=== PATIENT | female | born 1945 | race Caucasian/White ===

== ENCOUNTER 2017-07-28 11:20 | Inpatient (IN) | payer OTHER ==
[~2017-07-28] VITALS: Ht 160 cm; Wt 114.0 kg
[2017-07-28 13:41] LABS: HEMOGLOBIN 14.4 G/DL (11.9-15.5); MCH 28.8 PG (29.0-34.0); MCHC 32.7 G/DL (30.0-36.0); PLATELET COUNT 197 K/uL (156-360); RBC DIS.WIDTH-CV 14.6 % (11.8-14.6); WHITE BLOOD COUNT 9.8 K/uL (4.1-10.2)
[2017-07-28 13:47] LABS: CHLORIDE 91 mEq/L (99-109); POTASSIUM 4.4 mEq/L (3.7-5.4); SODIUM 133 mEq/L (136-147)
[2017-07-28 13:53] LABS: CREATININE 1.6 mg/dL (0.6-1.3); GFR ESTIMATE (CALCULATED) 33 mL/min/
[2017-07-28 13:54] LABS: GLUCOSE 650 mg/dL (70-99); UREA NITROGEN (BUN) 22 mg/dL (9-23)
[2017-07-28 16:12] LABS: TROP-I INTERPRETATION INDETERMINATE; TROPONIN-I 0.36 ng/mL (0.0-0.30)
[2017-07-28] MEDS ORDERED: FLEXERIL5 MG PO (20:04)
[2017-07-28] MEDS ORDERED: CARTIA XT180 MG PO (20:05)
[2017-07-28] MEDS ORDERED: LIPITOR80 MG PO (20:05)
[2017-07-28] MEDS ORDERED: FUROSEMIDE20 MG PO (20:05)
[2017-07-28] MEDS ORDERED: FENOFIBRATE54 M1 PO (20:06)
[2017-07-28] MEDS ORDERED: HUMALOG100 UNIT/1 SC (20:07)
[2017-07-28] MEDS ORDERED: ADULT ASPIRIN R81 MG PO (20:07)
[2017-07-28] MEDS ORDERED: VITAMIN D31000 UNIT PO (20:07)
[2017-07-28] MEDS ORDERED: APPLE CIDER VI500 MG PO (20:07)
[2017-07-28] MEDS ORDERED: TUDORZA PRESS400 MCG IH (20:07)
[2017-07-28] MEDS ORDERED: LOPRESSOR50 MG PO (20:07)
[2017-07-28] MEDS ORDERED: ADVAIR 500/501 DISK IH (20:07)
[2017-07-28] MEDS ORDERED: VENTOLIN HFA18 GM IH (20:08)
[2017-07-28 20:29] LABS: INTER. NORMALIZED RATIO 1.1
[2017-07-28 20:30] LABS: ALBUMIN 3.8 g/dL (3.2-4.8); CHLORIDE 96 mEq/L (99-109); POTASSIUM 4.3 mEq/L (3.7-5.4); SODIUM 135 mEq/L (136-147)
[2017-07-28 20:32] LABS: PTT 32.7 SEC (25-37)
[2017-07-28 20:34] LABS: TOTAL BILIRUBIN 0.7 mg/dL (0.0-1.0)
[2017-07-28 20:36] LABS: ALKALINE PHOSPHATASE 92 IU/L (3-129); CREATININE 1.5 mg/dL (0.6-1.3); GFR ESTIMATE (CALCULATED) 36 mL/min/
[2017-07-28 20:37] LABS: UREA NITROGEN (BUN) 21 mg/dL (9-23)
[2017-07-28 20:38] LABS: AST (GOT) 23 IU/L (2-34)
[2017-07-28 20:39] LABS: ALT (GPT) 18 IU/L (3-49)
[2017-07-28 20:53] LABS: GLUCOSE 450 mg/dL (70-99)
[2017-07-28 20:57] LABS: HEMATOCRIT 43.4 % (36.0-46.0); HEMOGLOBIN 14.3 G/DL (11.9-15.5); MCH 28.7 PG (29.0-34.0); MCHC 32.9 G/DL (30.0-36.0); MCV 87.1 FL (83-99); PLATELET COUNT 200 K/uL (156-360); RBC DIS.WIDTH-CV 14.5 % (11.8-14.6); RBC DIS.WIDTH-SD 45.1 % (39-53); RED BLOOD COUNT 4.98 M/uL (3.80-5.20); WHITE BLOOD COUNT 9.1 K/uL (4.1-10.2)
[2017-07-29 01:01] LABS: TROP-I INTERPRETATION INDETERMINATE; TROPONIN-I 0.32 ng/mL (0.0-0.30)
[2017-07-29 02:59] VITALS: BP 137/91
[2017-07-29 05:52] LABS: HEMATOCRIT 42.8 % (36.0-46.0); HEMOGLOBIN 13.9 G/DL (11.9-15.5); MCHC 32.5 G/DL (30.0-36.0); MCV 89.2 FL (83-99); PLATELET COUNT 196 K/uL (156-360); RBC DIS.WIDTH-CV 14.6 % (11.8-14.6); RBC DIS.WIDTH-SD 46.4 % (39-53)
[2017-07-29 06:09] LABS: TROP-I INTERPRETATION NEGATIVE; TROPONIN-I 0.22 ng/mL (0.0-0.30)
[2017-07-29 06:34] LABS: CHLORIDE 95 MEQ/L (99-109); CREATININE 1.3 MG/DL (0.6-1.3); GFR ESTIMATE (CALCULATED) 43 mL/min/; SODIUM 136 MEQ/L (136-147); UREA NITROGEN (BUN) 22 mg/dL (9-23)
[2017-07-29 06:40] LABS: GLUCOSE 462 mg/dL (70-99)
[2017-07-29 08:04] VITALS: BP 149/87
[2017-07-29 11:17] VITALS: BP 154/82
[2017-07-29 16:25] VITALS: BP 122/73
[2017-07-29 18:30] LABS: GLUCOSE 603 mg/dL (70-99)
[2017-07-29 19:25] VITALS: BP 146/78
[2017-07-30] VITALS: BP 130/80
[2017-07-30 01:09] LABS: CHLORIDE 101 mEq/L (99-109); POTASSIUM 5.1 mEq/L (3.7-5.4); SODIUM 133 mEq/L (136-147)
[2017-07-30 01:14] LABS: CREATININE 1.6 mg/dL (0.6-1.3); GFR ESTIMATE (CALCULATED) 33 mL/min/
[2017-07-30 01:15] LABS: UREA NITROGEN (BUN) 28 mg/dL (9-23)
[2017-07-30 01:18] LABS: GLUCOSE 517 mg/dL (70-99)
[2017-07-30 04:30] VITALS: BP 132/78
[2017-07-30 06:07] LABS: BASOPHIL (%) 0.1 % (0-1); EOSINOPHIL (%) 0 % (0-5); IMMATURE GRANULOCYTE (%) 0.9 % (0.0-0.7); LYMPHOCYTE (%) 5.9 % (15-42); LYMPHOCYTE COUNT 1.2 K/uL (1.0-2.8); MCH 29.3 PG (29.0-34.0); MCHC 33.3 G/DL (30.0-36.0); MONOCYTE (%) 5.7 % (3-12); MONOCYTE COUNT 1.2 K/uL (0-0.8); NEUTROPHIL (%) 87.4 % (45-76); NEUTROPHIL COUNT 18.4 K/uL (1.8-6.4); PLATELET COUNT 205 K/uL (156-360); RBC DIS.WIDTH-CV 14.3 % (11.8-14.6); RBC DIS.WIDTH-SD 45.3 % (39-53); RED BLOOD COUNT 4.43 M/uL (3.80-5.20); WHITE BLOOD COUNT 21.1 K/uL (4.1-10.2)
[2017-07-30 06:31] LABS: CHLORIDE 101 MEQ/L (99-109); CREATININE 1.2 MG/DL (0.6-1.3); GFR ESTIMATE (CALCULATED) 47 mL/min/; GLUCOSE 397 mg/dL (70-99); POTASSIUM 4.6 MEQ/L (3.7-5.4); SODIUM 136 MEQ/L (136-147); UREA NITROGEN (BUN) 27 mg/dL (9-23)
[2017-07-30 08:43] VITALS: BP 129/74
[2017-07-30 12:03] VITALS: BP 174/85
[2017-07-30 17:00] VITALS: BP 185/87
[2017-07-30 19:45] VITALS: BP 190/80
[2017-07-31 00:15] VITALS: BP 146/78
[2017-07-31 04:50] VITALS: BP 148/76
[2017-07-31 07:20] VITALS: BP 177/78
[2017-07-31 11:15] VITALS: BP 115/64
[2017-07-31 15:02] VITALS: BP 157/80
[2017-07-31 19:15] VITALS: BP 145/74
[2017-08-01] VITALS: BP 160/90
[2017-08-01 04:45] VITALS: BP 152/88
[2017-08-01 08:15] VITALS: BP 153/90
[2017-08-01 11:27] LABS: BASOPHIL (%) 0.2 % (0-1); EOSINOPHIL (%) 0.4 % (0-5); HEMATOCRIT 40.4 % (36.0-46.0); HEMOGLOBIN 13.1 G/DL (11.9-15.5); IMMATURE GRANULOCYTE (%) 1.2 % (0.0-0.7); LYMPHOCYTE (%) 15.1 % (15-42); LYMPHOCYTE COUNT 1.6 K/uL (1.0-2.8); MCHC 32.4 G/DL (30.0-36.0); MCV 89.4 FL (83-99); MONOCYTE (%) 8.9 % (3-12); NEUTROPHIL (%) 74.2 % (45-76); NRBC (%) 0.2 /100 WBC (0-0); RBC DIS.WIDTH-CV 14.9 % (11.8-14.6); RBC DIS.WIDTH-SD 47.7 % (39-53); RED BLOOD COUNT 4.52 M/uL (3.80-5.20); WHITE BLOOD COUNT 10.7 K/uL (4.1-10.2)
[2017-08-01 11:45] VITALS: BP 192/81
[2017-08-01 11:59] LABS: ANISOCYTOSIS 1+; OVALOCYTES 1+; PLAT.SUFFICIENCY ADEQUATE; PLATELET COUNT 209 K/uL (156-360); POLYCHROMASIA 1+; TARGET CELLS 1+
[2017-08-01] MEDS ORDERED: NOVOLOG 10100 UNITS/ SC (15:38)
[2017-08-01] MEDS ORDERED: LEVEMIR100 UNIT/2 SC (15:38)
[2017-08-01] MEDS ORDERED: CEFTIN500 MG PO (15:41)
[2017-08-01] MEDS ORDERED: ALBUTEROL2.5 MG/3 M IH (15:42)
[2017-08-01] MEDS ORDERED: PREDNISONE5 MG PO (15:43)
[2017-08-01] MEDS ORDERED: LISINOPRIL5 MG PO (16:02)
[2017-08-01 16:18] VITALS: BP 172/80
[2017-08-01 22:26] VITALS: BP 200/87
[2017-08-02 00:24] VITALS: BP 190/94
[2017-08-02 04:53] VITALS: BP 186/84
[2017-08-02 08:11] VITALS: BP 121/60
[2017-08-02 11:41] VITALS: BP 165/78
== END 2017-08-02 16:21 | disposition home health service (06) | DRG 189 ==
LOC: EME 11:20 → 4EAST 18:53 → EDOF 18:53 → ENRESERV 19:04 → 4EAST 07-29 02:45
PROVIDERS: Emergency Medicine; Hospitalist; Internal Medicine; Internal Medicine Pulmonary Disease
PROC: 5A09357 Assistance with Respiratory Ventilation, Less than 24 Consecutive Hours, Continuous Positive Airway Pressure (ICD-10-PCS; principal; 2017-07-30)
DX: J96.21 Acute and chronic respiratory failure with hypoxia (principal); J44.0 Chronic obstructive pulmonary disease with (acute) lower respiratory infection; J20.9 Acute bronchitis, unspecified; J44.1 Chronic obstructive pulmonary disease with (acute) exacerbation; N17.9 Acute kidney failure, unspecified; E11.65 Type 2 diabetes mellitus with hyperglycemia; E66.01 Morbid (severe) obesity due to excess calories; E78.5 Hyperlipidemia, unspecified; H90.5 Unspecified sensorineural hearing loss; I25.10 Atherosclerotic heart disease of native coronary artery without angina pectoris; E86.0 Dehydration; I44.4 Left anterior fascicular block; I24.8 Other forms of acute ischemic heart disease; Z68.41 Body mass index [BMI] 40.0-44.9, adult; K21.9 Gastro-esophageal reflux disease without esophagitis; G47.33 Obstructive sleep apnea (adult) (pediatric); I10 Essential (primary) hypertension; Z99.81 Dependence on supplemental oxygen; J45.901 Unspecified asthma with (acute) exacerbation; I27.20 Pulmonary hypertension, unspecified
CPT/HCPCS: 36600; 71046; 71250; 80048; 80048 91; 80053; 82803; 82948; 83036; 84484; 84999; 85025; 85027; 85610; 85730; 87040; 87502; 93005; 93306; 94640; 94640 76; 94660; 94760; 94799; 99202; 99281; 99285; J0360; J0696; J1650; J1815; J2930; J7030; J7512

== ENCOUNTER 2017-09-13 14:01 | Inpatient (IN) | payer OTHER ==
[~2017-09-13] VITALS: Ht 154.9 cm; Wt 113.9 kg
[~2017-09-13 14:01] MED LIST: ADULT ASPIRIN R81 MG PO; ADVAIR 500/501 DISK IH; ALBUTEROL2.5 MG/3 M IH; APPLE CIDER VI500 MG PO; CARTIA XT180 MG PO; CEFTIN500 MG PO; FENOFIBRATE54 M1 PO; FLEXERIL5 MG PO; FUROSEMIDE20 MG PO; HUMALOG100 UNIT/1 SC; LEVEMIR100 UNIT/2 SC; LIPITOR80 MG PO; LISINOPRIL5 MG PO; LOPRESSOR50 MG PO; NOVOLOG 10100 UNITS/ SC; PREDNISONE5 MG PO; TUDORZA PRESS400 MCG IH; VENTOLIN HFA18 GM IH; VITAMIN D31000 UNIT PO
[2017-09-13 14:38] LABS: BASOPHIL (%) 0.5 % (0-1); BASOPHIL COUNT 0.1 K/uL (0-0.1); EOSINOPHIL (%) 0.8 % (0-5); EOSINOPHIL COUNT 0.1 K/uL (0-0.3); HEMATOCRIT 43.4 % (36.0-46.0); HEMOGLOBIN 14.2 G/DL (11.9-15.5); IMMATURE GRANULOCYTE (%) 0.9 % (0.0-0.7); LYMPHOCYTE (%) 16.7 % (15-42); LYMPHOCYTE COUNT 1.8 K/uL (1.0-2.8); MCH 28.6 PG (29.0-34.0); MCHC 32.7 G/DL (30.0-36.0); MCV 87.5 FL (83-99); MONOCYTE COUNT 1.1 K/uL (0-0.8); NEUTROPHIL (%) 71.1 % (45-76); NEUTROPHIL COUNT 7.8 K/uL (1.8-6.4); PLATELET COUNT 220 K/uL (156-360); RBC DIS.WIDTH-CV 14.8 % (11.8-14.6); RBC DIS.WIDTH-SD 47.3 % (39-53); RED BLOOD COUNT 4.96 M/uL (3.80-5.20)
[2017-09-13 14:49] LABS: ALBUMIN 3.5 g/dL (3.2-4.8); CHLORIDE 100 mEq/L (99-109); POTASSIUM 3.7 mEq/L (3.7-5.4); SODIUM 139 mEq/L (136-147)
[2017-09-13 14:51] LABS: GLUCOSE 209 mg/dL (70-99)
[2017-09-13 14:52] LABS: TOTAL PROTEIN 6.9 g/dL (6.4-8.3)
[2017-09-13 14:53] LABS: TOTAL BILIRUBIN 0.6 mg/dL (0.0-1.0)
[2017-09-13 14:55] LABS: ALKALINE PHOSPHATASE 70 IU/L (3-129); CREATININE 1.5 mg/dL (0.6-1.3); GFR ESTIMATE (CALCULATED) 36 mL/min/
[2017-09-13 14:56] LABS: UREA NITROGEN (BUN) 32 mg/dL (9-23)
[2017-09-13 14:57] LABS: AST (GOT) 24 IU/L (2-34)
[2017-09-13 14:58] LABS: ALT (GPT) 15 IU/L (3-49)
[2017-09-13 14:59] LABS: TROP-I INTERPRETATION INDETERMINATE; TROPONIN-I 0.45 ng/mL (0.0-0.30)
[2017-09-13 16:56] LABS: BASE EXCESS 3.1 mEq/L (-3 to +3); CARBOXY HGB 1.8 % (0-5); METHEMOGLOBIN 0.9 % (0-1.5); PO2 71 mm Hg (80-100); pH 7.46 (7.35-7.45)
[2017-09-13 16:57] LABS: COMMENTS - BLOOD GASES A+C+; DEVICE VENT; FI02 100 %; MODE SPONT; PCO2 38 mm Hg (35-45); PEEP 12 CM/H20; PRES. SUPPORT 12 CM/H2O; SITE LR; TOTAL RESP RATE 22 resp/min
[2017-09-13] MEDS ORDERED: LEVEMIR FL100 UNIT/1 SC (17:25)
[2017-09-13] MEDS ORDERED: FLUCONAZOLE100 MG PO (17:30)
[2017-09-13] MEDS ORDERED: CYCLOBENZAPRINE5 MG PO (17:32)
[2017-09-13] MEDS ORDERED: NOVOLOG PE100 UNITS/ SC (17:33)
[2017-09-13 18:00] VITALS: BP 164/90
[2017-09-13 19:00] VITALS: BP 143/95
[2017-09-13 20:00] VITALS: BP 148/102
[2017-09-13 20:28] LABS: BASE EXCESS 0.3 mEq/L (-3 to +3); BICARBONATE 24.6 mEq/L (22-26); CARBOXY HGB 1.7 % (0-5); COMMENTS - BLOOD GASES C+A+; DEVICE NIV; FI02 100 %; METHEMOGLOBIN 1.5 % (0-1.5); MODE SPONT; PCO2 38 mm Hg (35-45); PEEP 12 CM/H20; PO2 125 mm Hg (80-100); PRES. SUPPORT 12 CM/H2O; SITE RR; TOTAL RESP RATE 26 resp/min; pH 7.42 (7.35-7.45)
[2017-09-13 21:00] VITALS: BP 142/97
[2017-09-13 22:00] VITALS: BP 155/96
[2017-09-13 23:00] VITALS: BP 155/90
[2017-09-13 23:39] LABS: APPEARANCE SL.HAZY ((CLEAR)); BILIRUBIN NEGATIVE; BLOOD NEGATIVE; COLOR YELLOW ((YELLOW)); GLUCOSE (STRIP) NEGATIVE; KETONES NEGATIVE; LEUKOCYTES NEGATIVE; NITRITE NEGATIVE; PROTEIN (STRIP) NEGATIVE; UROBILINOGEN 0.2 MG/DL (0.2-1.0)
[2017-09-13 23:46] LABS: BACTERIA RARE /HPF; EPITHELIAL CELLS NONE SEEN /HPF; MUCUS TRACE /LPF; RED BLOOD CELLS 0-5 /HPF (0-5); WHITE BLOOD CELLS 0-5 /HPF (0-5)
[2017-09-13 23:49] LABS: TROP-I INTERPRETATION NEGATIVE
[2017-09-14] VITALS (22 sets, daily range): BP systolic 92–152; BP diastolic 65–120
[2017-09-14 04:59] LABS: BASE EXCESS 0.1 mEq/L (-3 to +3); BICARBONATE 24.7 mEq/L (22-26); CARBOXY HGB 1.8 % (0-5); COMMENTS - BLOOD GASES C+A+; DEVICE NIV; FI02 55 %; METHEMOGLOBIN 1.4 % (0-1.5); MODE SPONT; PCO2 39 mm Hg (35-45); PO2 77 mm Hg (80-100); SITE RR; TOTAL RESP RATE 18 resp/min; pH 7.41 (7.35-7.45)
[2017-09-14 05:00] LABS: PEEP 12 CM/H20; PRES. SUPPORT 12 CM/H2O
[2017-09-14 06:09] LABS: HEMATOCRIT 41.8 % (36.0-46.0); HEMOGLOBIN 13.4 G/DL (11.9-15.5); MCH 28.1 PG (29.0-34.0); MCHC 32.1 G/DL (30.0-36.0); MCV 87.6 FL (83-99); PLATELET COUNT 206 K/uL (156-360); RBC DIS.WIDTH-CV 14.6 % (11.8-14.6); RBC DIS.WIDTH-SD 47.2 % (39-53); RED BLOOD COUNT 4.77 M/uL (3.80-5.20); WHITE BLOOD COUNT 9.8 K/uL (4.1-10.2)
[2017-09-14 06:57] LABS: CHLORIDE 99 MEQ/L (99-109); POTASSIUM 4.4 MEQ/L (3.7-5.4); SODIUM 138 MEQ/L (136-147)
[2017-09-14 09:05] LABS: CREATININE 1.4 MG/DL (0.6-1.3); GFR ESTIMATE (CALCULATED) 39 mL/min/; GLUCOSE 265 mg/dL (70-99); UREA NITROGEN (BUN) 39 mg/dL (9-23)
[2017-09-14 09:46] LABS: HEMOGLOBIN A1c (GLYCOHEMOGLOB) 11.1 % (Below 5.7)
[2017-09-15] VITALS (22 sets, daily range): BP systolic 109–171; BP diastolic 59–88
[2017-09-15 05:01] LABS: BASOPHIL (%) 0.1 % (0-1); EOSINOPHIL (%) 0 % (0-5); HEMATOCRIT 37.6 % (36.0-46.0); HEMOGLOBIN 12.6 G/DL (11.9-15.5); IMMATURE GRANULOCYTE (%) 0.9 % (0.0-0.7); LYMPHOCYTE (%) 5.1 % (15-42); MCHC 33.5 G/DL (30.0-36.0); MCV 86.6 FL (83-99); MONOCYTE (%) 4.9 % (3-12); NEUTROPHIL COUNT 18.3 K/uL (1.8-6.4); PLATELET COUNT 226 K/uL (156-360); RBC DIS.WIDTH-CV 14.6 % (11.8-14.6); RBC DIS.WIDTH-SD 46.1 % (39-53); RED BLOOD COUNT 4.34 M/uL (3.80-5.20); WHITE BLOOD COUNT 20.5 K/uL (4.1-10.2)
[2017-09-15 05:13] LABS: CHLORIDE 100 mEq/L (99-109); POTASSIUM 3.9 mEq/L (3.7-5.4); SODIUM 135 mEq/L (136-147)
[2017-09-15 05:15] LABS: GLUCOSE 310 mg/dL (70-99)
[2017-09-15 05:19] LABS: CREATININE 1.8 mg/dL (0.6-1.3); GFR ESTIMATE (CALCULATED) 29 mL/min/
[2017-09-15 05:20] LABS: UREA NITROGEN (BUN) 52 mg/dL (9-23)
[2017-09-15 10:34] LABS: BASE EXCESS 1.7 mEq/L (-3 to +3); BICARBONATE 26.6 mEq/L (22-26); CARBOXY HGB 0.9 % (0-5); METHEMOGLOBIN 0 % (0-1.5); PCO2 42 mm Hg (35-45); PO2 75 mm Hg (80-100); pH 7.41 (7.35-7.45)
[2017-09-15 10:35] LABS: COMMENTS - BLOOD GASES NAC+; DEVICE HHFNC; FI02 100 %; O2 FLOW 50 L/MIN; SITE RR
[2017-09-16] VITALS (21 sets, daily range): BP systolic 117–193; BP diastolic 62–96
[2017-09-16 08:13] LABS: CHLORIDE 100 MEQ/L (99-109); MAGNESIUM 2.5 mg/dl (1.3-2.7); POTASSIUM 4.2 MEQ/L (3.7-5.4); SODIUM 137 MEQ/L (136-147)
[2017-09-16 08:19] LABS: CREATININE 1.4 MG/DL (0.6-1.3); GFR ESTIMATE (CALCULATED) 39 mL/min/; GLUCOSE 350 mg/dL (70-99); PHOSPHORUS 4.3 mg/dL (2.5-4.9); UREA NITROGEN (BUN) 48 mg/dL (9-23)
[2017-09-16 08:27] LABS: BASOPHIL (%) 0.1 % (0-1); EOSINOPHIL (%) 0 % (0-5); HEMATOCRIT 38.6 % (36.0-46.0); HEMOGLOBIN 12.7 G/DL (11.9-15.5); LYMPHOCYTE (%) 5.2 % (15-42); LYMPHOCYTE COUNT 0.9 K/uL (1.0-2.8); MCH 28.8 PG (29.0-34.0); MCHC 32.9 G/DL (30.0-36.0); MCV 87.5 FL (83-99); MONOCYTE (%) 4.8 % (3-12); MONOCYTE COUNT 0.9 K/uL (0-0.8); NEUTROPHIL (%) 88.9 % (45-76); NEUTROPHIL COUNT 15.9 K/uL (1.8-6.4); PLATELET COUNT 219 K/uL (156-360); RBC DIS.WIDTH-CV 14.7 % (11.8-14.6); RBC DIS.WIDTH-SD 47.2 % (39-53); RED BLOOD COUNT 4.41 M/uL (3.80-5.20); WHITE BLOOD COUNT 17.9 K/uL (4.1-10.2)
[2017-09-16 10:25] LABS: BASE EXCESS 3.1 mEq/L (-3 to +3); BICARBONATE 28.5 mEq/L (22-26); CARBOXY HGB 2.9 % (0-5); METHEMOGLOBIN 0.6 % (0-1.5); PCO2 46 mm Hg (35-45); PO2 88 mm Hg (80-100)
[2017-09-16 10:26] LABS: COMMENTS - BLOOD GASES A+C+; DEVICE HHFNC; FI02 100 %; O2 FLOW 50 L/MIN; SITE LR; TOTAL RESP RATE 22 resp/min
[2017-09-17] VITALS (23 sets, daily range): BP systolic 112–206; BP diastolic 58–137
[2017-09-17 07:09] LABS: BASOPHIL (%) 0.1 % (0-1); EOSINOPHIL (%) 0 % (0-5); HEMATOCRIT 41.3 % (36.0-46.0); HEMOGLOBIN 13.3 G/DL (11.9-15.5); IMMATURE GRANULOCYTE (%) 1.3 % (0.0-0.7); LYMPHOCYTE (%) 4.6 % (15-42); LYMPHOCYTE COUNT 0.8 K/uL (1.0-2.8); MCHC 32.2 G/DL (30.0-36.0); MCV 86.9 FL (83-99); MONOCYTE (%) 7.7 % (3-12); MONOCYTE COUNT 1.4 K/uL (0-0.8); NEUTROPHIL (%) 86.3 % (45-76); NEUTROPHIL COUNT 15.5 K/uL (1.8-6.4); PLATELET COUNT 250 K/uL (156-360); RBC DIS.WIDTH-CV 14.4 % (11.8-14.6); RED BLOOD COUNT 4.75 M/uL (3.80-5.20); WHITE BLOOD COUNT 17.9 K/uL (4.1-10.2)
[2017-09-17 07:34] LABS: ALBUMIN 3.5 G/DL (3.2-4.8); ALKALINE PHOSPHATASE 70 IU/L (3-129); ALT (GPT) 18 IU/L (3-49); AST (GOT) 13 IU/L (2-34); CHLORIDE 99 MEQ/L (99-109); CREATININE 1.2 MG/DL (0.6-1.3); GFR ESTIMATE (CALCULATED) 47 mL/min/; GLUCOSE 213 mg/dL (70-99); MAGNESIUM 2.4 mg/dl (1.3-2.7); POTASSIUM 3.6 MEQ/L (3.7-5.4); SODIUM 141 MEQ/L (136-147); TOTAL BILIRUBIN 0.4 MG/DL (0.0-1.0); TOTAL PROTEIN 5.9 G/DL (6.4-8.3); UREA NITROGEN (BUN) 42 mg/dL (9-23)
[2017-09-18] VITALS (14 sets, daily range): BP systolic 131–171; BP diastolic 65–135
[2017-09-18 06:09] LABS: BASOPHIL (%) 0.3 % (0-1); BASOPHIL COUNT 0.1 K/uL (0-0.1); EOSINOPHIL (%) 0.1 % (0-5); HEMATOCRIT 43.4 % (36.0-46.0); HEMOGLOBIN 14.1 G/DL (11.9-15.5); IMMATURE GRANULOCYTE (%) 1.6 % (0.0-0.7); LYMPHOCYTE (%) 4.9 % (15-42); LYMPHOCYTE COUNT 0.8 K/uL (1.0-2.8); MCH 28.7 PG (29.0-34.0); MCHC 32.5 G/DL (30.0-36.0); MCV 88.4 FL (83-99); MONOCYTE (%) 5.5 % (3-12); MONOCYTE COUNT 0.9 K/uL (0-0.8); NEUTROPHIL (%) 87.6 % (45-76); RBC DIS.WIDTH-CV 14.7 % (11.8-14.6); RBC DIS.WIDTH-SD 47.2 % (39-53); RED BLOOD COUNT 4.91 M/uL (3.80-5.20); WHITE BLOOD COUNT 17.1 K/uL (4.1-10.2)
[2017-09-18 06:37] LABS: PLAT.SUFFICIENCY ADEQUATE; PLATELET COUNT 217 K/uL (156-360)
[2017-09-18 06:40] LABS: CHLORIDE 97 MEQ/L (99-109); CREATININE 1.2 MG/DL (0.6-1.3); GFR ESTIMATE (CALCULATED) 47 mL/min/; GLUCOSE 315 mg/dL (70-99); MAGNESIUM 2.6 mg/dl (1.3-2.7); PHOSPHORUS 3.5 mg/dL (2.5-4.9); SODIUM 140 MEQ/L (136-147); UREA NITROGEN (BUN) 42 mg/dL (9-23)
[2017-09-18 06:41] LABS: POTASSIUM 4.6 MEQ/L (3.7-5.4)
[2017-09-19] VITALS (7 sets, daily range): BP systolic 146–175; BP diastolic 69–81
[2017-09-19 02:58] LABS: INTER. NORMALIZED RATIO 1.1
[2017-09-19 03:01] LABS: PTT 68.2 SEC (25-37)
[2017-09-19 04:37] LABS: HEMOGLOBIN 13.9 G/DL (11.9-15.5); MCH 28.9 PG (29.0-34.0); MCHC 33.1 G/DL (30.0-36.0); MCV 87.3 FL (83-99); PLATELET COUNT 199 K/uL (156-360); RBC DIS.WIDTH-CV 14.3 % (11.8-14.6); RBC DIS.WIDTH-SD 45.9 % (39-53); RED BLOOD COUNT 4.81 M/uL (3.80-5.20); WHITE BLOOD COUNT 17.7 K/uL (4.1-10.2)
[2017-09-19 10:58] LABS: CHLORIDE 97 MEQ/L (99-109); CREATININE 1.4 MG/DL (0.6-1.3); GFR ESTIMATE (CALCULATED) 39 mL/min/; GLUCOSE 210 mg/dL (70-99); POTASSIUM 3.7 MEQ/L (3.7-5.4); SODIUM 142 MEQ/L (136-147); UREA NITROGEN (BUN) 47 mg/dL (9-23)
[2017-09-20 04:25] VITALS: BP 154/82
[2017-09-20 07:16] LABS: BASOPHIL (%) 0.4 % (0-1); BASOPHIL COUNT 0.1 K/uL (0-0.1); EOSINOPHIL (%) 0 % (0-5); HEMATOCRIT 43.8 % (36.0-46.0); HEMOGLOBIN 14.2 G/DL (11.9-15.5); IMMATURE GRANULOCYTE (%) 3.1 % (0.0-0.7); LYMPHOCYTE (%) 5.4 % (15-42); MCH 28.3 PG (29.0-34.0); MCHC 32.4 G/DL (30.0-36.0); MCV 87.4 FL (83-99); MONOCYTE (%) 5.8 % (3-12); MONOCYTE COUNT 1.1 K/uL (0-0.8); NEUTROPHIL (%) 85.3 % (45-76); NEUTROPHIL COUNT 15.5 K/uL (1.8-6.4); PLATELET COUNT 205 K/uL (156-360); RBC DIS.WIDTH-CV 14.5 % (11.8-14.6); RBC DIS.WIDTH-SD 46.1 % (39-53); RED BLOOD COUNT 5.01 M/uL (3.80-5.20); WHITE BLOOD COUNT 18.2 K/uL (4.1-10.2)
[2017-09-20 07:45] LABS: CHLORIDE 95 MEQ/L (99-109); CREATININE 1.1 MG/DL (0.6-1.3); GFR ESTIMATE (CALCULATED) 52 mL/min/; GLUCOSE 180 mg/dL (70-99); POTASSIUM 3.9 MEQ/L (3.7-5.4); SODIUM 142 MEQ/L (136-147); UREA NITROGEN (BUN) 44 mg/dL (9-23)
[2017-09-20 08:26] VITALS: BP 134/72
[2017-09-20 10:55] VITALS: BP 148/80
[2017-09-20 16:21] VITALS: BP 155/72
[2017-09-20 19:36] VITALS: BP 177/83
[2017-09-20 23:24] VITALS: BP 158/85
[2017-09-21 04:26] VITALS: BP 172/83
[2017-09-21 06:59] LABS: BASOPHIL (%) 0.3 % (0-1); BASOPHIL COUNT 0.1 K/uL (0-0.1); EOSINOPHIL (%) 0 % (0-5); HEMATOCRIT 43.8 % (36.0-46.0); HEMOGLOBIN 14.1 G/DL (11.9-15.5); IMMATURE GRANULOCYTE (%) 4.4 % (0.0-0.7); LYMPHOCYTE (%) 5.7 % (15-42); LYMPHOCYTE COUNT 1.1 K/uL (1.0-2.8); MCH 28.3 PG (29.0-34.0); MCHC 32.2 G/DL (30.0-36.0); MONOCYTE (%) 5.6 % (3-12); MONOCYTE COUNT 1.1 K/uL (0-0.8); NEUTROPHIL COUNT 15.6 K/uL (1.8-6.4); PLATELET COUNT 162 K/uL (156-360); RBC DIS.WIDTH-CV 14.7 % (11.8-14.6); RBC DIS.WIDTH-SD 47.4 % (39-53); RED BLOOD COUNT 4.98 M/uL (3.80-5.20); WHITE BLOOD COUNT 18.6 K/uL (4.1-10.2)
[2017-09-21 07:09] LABS: PTT 66.1 SEC (25-37)
[2017-09-21 07:26] LABS: CHLORIDE 98 MEQ/L (99-109); CREATININE 1.1 MG/DL (0.6-1.3); GFR ESTIMATE (CALCULATED) 52 mL/min/; GLUCOSE 159 mg/dL (70-99); SODIUM 142 MEQ/L (136-147); UREA NITROGEN (BUN) 44 mg/dL (9-23)
[2017-09-21 08:13] VITALS: BP 133/68
[2017-09-21 11:45] VITALS: BP 131/61
[2017-09-21 15:59] VITALS: BP 126/58
[2017-09-21 19:45] VITALS: BP 188/75
[2017-09-21 23:30] VITALS: BP 158/77
[2017-09-22 03:50] VITALS: BP 152/83
[2017-09-22 05:25] LABS: HEMOGLOBIN 14.3 G/DL (11.9-15.5); MCH 28.7 PG (29.0-34.0); MCHC 32.5 G/DL (30.0-36.0); MCV 88.2 FL (83-99); PLATELET COUNT 169 K/uL (156-360); RBC DIS.WIDTH-CV 14.9 % (11.8-14.6); RBC DIS.WIDTH-SD 48.1 % (39-53); RED BLOOD COUNT 4.99 M/uL (3.80-5.20); WHITE BLOOD COUNT 19.4 K/uL (4.1-10.2)
[2017-09-22 05:49] LABS: CHLORIDE 96 MEQ/L (99-109); CREATININE 1.3 MG/DL (0.6-1.3); GFR ESTIMATE (CALCULATED) 43 mL/min/; GLUCOSE 154 mg/dL (70-99); SODIUM 137 MEQ/L (136-147); UREA NITROGEN (BUN) 50 mg/dL (9-23)
[2017-09-22 05:50] LABS: ABS NEUTROPHIL COUNT 16.7; EOSINOPHIL ABS CT 0; LYMPHOCYTES 11.2 % (15.0-45.0); MONOCYTES 1.7 % (0-9.0); MYELOCYTES 0.9 %; OVALOCYTES 1+; PLAT.SUFFICIENCY ADEQUATE; SEG.NEUTROPHILS 86.2 % (46.0-76.0); TEAR DROP CELLS 1+
[2017-09-22 09:00] VITALS: BP 165/70
[2017-09-22 21:06] VITALS: BP 182/72
[2017-09-23 00:30] VITALS: BP 164/81
[2017-09-23 04:28] VITALS: BP 151/67
[2017-09-23 05:49] LABS: HEMATOCRIT 43.6 % (36.0-46.0); HEMOGLOBIN 13.9 G/DL (11.9-15.5); MCH 27.9 PG (29.0-34.0); MCHC 31.9 G/DL (30.0-36.0); MCV 87.4 FL (83-99); PLATELET COUNT 183 K/uL (156-360); RBC DIS.WIDTH-CV 14.9 % (11.8-14.6); RBC DIS.WIDTH-SD 47.8 % (39-53); RED BLOOD COUNT 4.99 M/uL (3.80-5.20); WHITE BLOOD COUNT 20.3 K/uL (4.1-10.2)
[2017-09-23 06:11] LABS: CHLORIDE 100 MEQ/L (99-109); CREATININE 1.2 MG/DL (0.6-1.3); GFR ESTIMATE (CALCULATED) 47 mL/min/; POTASSIUM 4.2 MEQ/L (3.7-5.4); SODIUM 141 MEQ/L (136-147); UREA NITROGEN (BUN) 48 mg/dL (9-23)
[2017-09-23 06:17] LABS: GLUCOSE 96 mg/dL (70-99)
[2017-09-23 06:30] LABS: ABS NEUTROPHIL COUNT 13.8; ATYPICAL LYMPHOCYTE 0.9 %; BAND NEUTROPHILS 0.9 % (0-8.0); EOSINOPHIL ABS CT 0.7; EOSINOPHILS 3.4 % (0-5.0); LYMPHOCYTES 17.2 % (15.0-45.0); METAMYELOCYTES 0.9 %; MONOCYTES 4.3 % (0-9.0); MYELOCYTES 5.2 %; SEG.NEUTROPHILS 67.2 % (46.0-76.0); SMUDGE CELLS 0.9
[2017-09-23 09:00] VITALS: BP 141/64; BP 141/68
[2017-09-23 16:30] VITALS: BP 142/70
[2017-09-23 20:00] VITALS: BP 167/73
[2017-09-23 23:55] VITALS: BP 147/65
[2017-09-24 04:00] VITALS: BP 180/84
[2017-09-24 05:59] VITALS: BP 176/79
[2017-09-24 09:05] VITALS: BP 166/81
[2017-09-24 11:47] VITALS: BP 132/65
[2017-09-24] MEDS ORDERED: PREDNISONE10 MG PO (14:33)
[2017-09-24 15:50] VITALS: BP 180/75
[2017-09-24 19:13] VITALS: BP 129/61
[2017-09-25 00:35] VITALS: BP 171/76
[2017-09-25 03:50] VITALS: BP 131/62
[2017-09-25 08:11] VITALS: BP 151/70
[2017-09-25] MEDS ORDERED: LEVEMIR100 UNIT/2 SC ×2 (12:59→13:00)
[2017-09-25] MEDS ORDERED: XARELTO15 MG PO (13:43)
[2017-09-25] MEDS ORDERED: XARELTO20 MG PO (13:44)
== END 2017-09-25 14:45 | disposition home health service (06) | DRG 189 ==
LOC: EME 14:01 → EDOF 15:59 → 4WEST 15:59 → ENRESERV 16:00 → 4WEST 18:01 → ENRESERV 09-18 11:55 → 4WEST 09-18 12:15 → 4EAST 09-18 13:56
PROVIDERS: Emergency Medicine; Hospitalist; Internal Medicine; Internal Medicine Critical Care Medicine; Specialist; Surgery
PROC: 5A09357 Assistance with Respiratory Ventilation, Less than 24 Consecutive Hours, Continuous Positive Airway Pressure (ICD-10-PCS; principal; 2017-09-13)
PROC: 5A09357 Assistance with Respiratory Ventilation, Less than 24 Consecutive Hours, Continuous Positive Airway Pressure (ICD-10-PCS; 2017-09-19)
DX: J96.21 Acute and chronic respiratory failure with hypoxia (principal); J18.9 Pneumonia, unspecified organism; J44.0 Chronic obstructive pulmonary disease with (acute) lower respiratory infection; J44.1 Chronic obstructive pulmonary disease with (acute) exacerbation; N17.9 Acute kidney failure, unspecified; J45.901 Unspecified asthma with (acute) exacerbation; I26.99 Other pulmonary embolism without acute cor pulmonale; I82.431 Acute embolism and thrombosis of right popliteal vein; I82.441 Acute embolism and thrombosis of right tibial vein; I82.442 Acute embolism and thrombosis of left tibial vein; I24.8 Other forms of acute ischemic heart disease; E87.6 Hypokalemia; I25.10 Atherosclerotic heart disease of native coronary artery without angina pectoris; I10 Essential (primary) hypertension; I27.20 Pulmonary hypertension, unspecified; J98.11 Atelectasis; E78.5 Hyperlipidemia, unspecified; E11.9 Type 2 diabetes mellitus without complications; H90.5 Unspecified sensorineural hearing loss; Y95 Nosocomial condition; Z77.22 Contact with and (suspected) exposure to environmental tobacco smoke (acute) (chronic); E66.2 Morbid (severe) obesity with alveolar hypoventilation; Z68.42 Body mass index [BMI] 45.0-49.9, adult; I25.2 Old myocardial infarction; Z99.81 Dependence on supplemental oxygen; Z79.82 Long term (current) use of aspirin; Z79.4 Long term (current) use of insulin
CPT/HCPCS: 36600; 71045; 71250; 71275; 80048; 80053; 80202; 81003; 82803; 82948; 83036; 83605; 83735; 83880; 84100; 84484; 85025; 85027; 85379; 85610; 85730; 87040; 87449; 87502; 87641; 93005; 93306; 93970; 94002; 94010; 94640; 94640 76; 94660; 94667; 94668; 94760; 94799; 97530 GO; 97530 GP; 99202; 99281; 99285; J0692; J1644; J1815; J1940; J2920; J2930; J3370; J7512; S0028

== ENCOUNTER 2017-10-27 10:02 | Emergency (ER) | payer OTHER ==
[~2017-10-27] VITALS: Ht 160 cm; Wt 110.0 kg
[~2017-10-27 10:02] MED LIST changes: +CYCLOBENZAPRINE5 MG PO; +FLUCONAZOLE100 MG PO; +LEVEMIR FL100 UNIT/1 SC; +NOVOLOG PE100 UNITS/ SC; +PREDNISONE10 MG PO; +XARELTO15 MG PO; +XARELTO20 MG PO
[2017-10-27 12:49] VITALS: BP 137/110
== END 2017-10-27 12:50 | disposition home or self-care (01) ==
LOC: EME 10:02
DX: S00.03XA Contusion of scalp, initial encounter (principal); W18.30XA Fall on same level, unspecified, initial encounter; I48.91 Unspecified atrial fibrillation; Z79.01 Long term (current) use of anticoagulants; Z99.81 Dependence on supplemental oxygen
CPT/HCPCS: 70450; 99281; 99283

== ENCOUNTER 2018-01-10 12:25 | Day surgery (SDC) | payer OTHER ==
[~2018-01-10] VITALS: Ht 157.5 cm; Wt 108.0 kg
[~2018-01-10 12:25] MED LIST changes: +LASIX20 MG PO; +LISINOPRIL10 MG PO; +LOPRESSOR25 MG PO; -LOPRESSOR50 MG PO; +PROVENTIL,2.5 MG/3 M IH
== END 2018-01-10 14:10 | disposition home or self-care (01) ==
LOC: PAIN 12:25 → SDC 13:00 → PAIN 14:10
PROVIDERS: Anesthesiology Pain Medicine
DX: M47.816 Spondylosis without myelopathy or radiculopathy, lumbar region (principal); M53.3 Sacrococcygeal disorders, not elsewhere classified; I10 Essential (primary) hypertension; E11.9 Type 2 diabetes mellitus without complications; Z79.4 Long term (current) use of insulin; G47.33 Obstructive sleep apnea (adult) (pediatric); E78.5 Hyperlipidemia, unspecified; I27.20 Pulmonary hypertension, unspecified
CPT/HCPCS: 82948; J1100; J2250

== ENCOUNTER 2018-02-07 08:25 | Day surgery (SDC) | payer OTHER ==
[~2018-02-07] VITALS: Ht 157.5 cm; Wt 108.0 kg
== END 2018-02-07 10:45 | disposition home or self-care (01) ==
LOC: PAIN 08:25 → SDC 09:00 → PAIN 09:00
PROVIDERS: Anesthesiology Pain Medicine
DX: M51.16 Intervertebral disc disorders with radiculopathy, lumbar region (principal); M47.26 Other spondylosis with radiculopathy, lumbar region; M96.1 Postlaminectomy syndrome, not elsewhere classified; E66.01 Morbid (severe) obesity due to excess calories; Z68.41 Body mass index [BMI] 40.0-44.9, adult; E78.5 Hyperlipidemia, unspecified; I25.10 Atherosclerotic heart disease of native coronary artery without angina pectoris; I25.2 Old myocardial infarction; I12.9 Hypertensive chronic kidney disease with stage 1 through stage 4 chronic kidney disease, or unspecified chronic kidney disease; E11.22 Type 2 diabetes mellitus with diabetic chronic kidney disease; N18.3 Chronic kidney disease, stage 3 (moderate); Z79.4 Long term (current) use of insulin; Z86.711 Personal history of pulmonary embolism; Z86.718 Personal history of other venous thrombosis and embolism; G47.30 Sleep apnea, unspecified; J44.9 Chronic obstructive pulmonary disease, unspecified; R94.31 Abnormal electrocardiogram [ECG] [EKG]; Z79.82 Long term (current) use of aspirin; Z79.01 Long term (current) use of anticoagulants; Z79.891 Long term (current) use of opiate analgesic
CPT/HCPCS: 82948; J1100; J2250; J3010

== ENCOUNTER 2018-03-16 08:08 | Day surgery (SDC) | payer OTHER ==
[~2018-03-16] VITALS: Ht 160 cm; Wt 108.0 kg
== END 2018-03-16 10:15 | disposition home or self-care (01) ==
LOC: PAIN 08:08 → SDC 08:30 → PAIN 08:30
PROVIDERS: Anesthesiology Pain Medicine
PROC: BR161ZZ Fluoroscopy of Lumbar Facet Joint(s) using Low Osmolar Contrast (ICD-10-PCS; principal; 2018-03-16)
PROC: 3E0T33Z Introduction of Anti-inflammatory into Peripheral Nerves and Plexi, Percutaneous Approach (ICD-10-PCS; principal; 2018-03-16)
PROC: 3E0T3BZ Introduction of Anesthetic Agent into Peripheral Nerves and Plexi, Percutaneous Approach (ICD-10-PCS; principal; 2018-03-16)
DX: M47.816 Spondylosis without myelopathy or radiculopathy, lumbar region (principal); M96.1 Postlaminectomy syndrome, not elsewhere classified; M51.26 Other intervertebral disc displacement, lumbar region; E66.01 Morbid (severe) obesity due to excess calories; Z68.41 Body mass index [BMI] 40.0-44.9, adult; Z79.4 Long term (current) use of insulin; Z79.82 Long term (current) use of aspirin; E11.65 Type 2 diabetes mellitus with hyperglycemia; I12.9 Hypertensive chronic kidney disease with stage 1 through stage 4 chronic kidney disease, or unspecified chronic kidney disease; E11.22 Type 2 diabetes mellitus with diabetic chronic kidney disease; N18.3 Chronic kidney disease, stage 3 (moderate); I25.10 Atherosclerotic heart disease of native coronary artery without angina pectoris; I25.2 Old myocardial infarction; G47.33 Obstructive sleep apnea (adult) (pediatric)
CPT/HCPCS: 82948; J1030; J2250; J3010; S0020